=== PATIENT | female | born 1970 | race Hispanic/Latino ===

== ENCOUNTER → 2024-06-16 | Day surgery (SDC) | payer OTHER ==
[~2024-06-16] MED LIST: HYOSCYAMINE SULFATE 0.5 MG/ML INJ ONE; LIDOCAINE HCL 2% LOCAL INJ 5 ML SDV VIAL INJ ONE; MIDAZOLAM HCL 2 MG/2 ML VIAL ONE; PROBIOTIC & AC1 EACH PO; PROPOFOL IV EMULSION 50 ML IV ONE; VALERIAN ROOT500 MG
[2024-06-16] MEDS: LACTATED RINGER'S 1,000 ML ONE (08:42)
[2024-06-16 10:25] VITALS: TEMP 97
[2024-06-16 10:55] VITALS: BP 109/72; PULSE 72; RESP 14; O2SAT 98
== END | disposition home or self-care (01) ==
LOC: OR 07:53
PROVIDERS: ATTEND Internal Medicine Gastroenterology
DX: K62.5 Hemorrhage of anus and rectum (principal); D12.2 Benign neoplasm of ascending colon; K62.1 Rectal polyp; K57.30 Diverticulosis of large intestine without perforation or abscess without bleeding; K59.09 Other constipation; K64.4 Residual hemorrhoidal skin tags; K64.8 Other hemorrhoids; Z71.3 Dietary counseling and surveillance; Z71.89 Other specified counseling; Z01.810 Encounter for preprocedural cardiovascular examination; Z68.27 Body mass index [BMI] 27.0-27.9, adult
CPT/HCPCS: 45385; 93005; J1980; J2003; J2250; J2704; J7121; 45378